=== PATIENT | female | born 1950 | race Caucasian/White ===

== ENCOUNTER 2019-03-08 09:01 | Day surgery (SDC) | payer OTHER, SELFPAY ==
[2019-03-04 10:49] VITALS: BMI 34.8
[2019-03-08] VITALS (8 sets, daily range): BP systolic 109–153; BP diastolic 53–91; PULSE 60–77; RESP 14–24; TEMP 36.2–36.8; O2SAT 93–95; BMI 33.0
--- NOTE | 2019-03-08 | DI.RAD.S_ITS ---
PROCEDURE: XR FOOT LT MIN 3V INDICATIONS: CORRECTION FLAT FOOT WITH HINDFOOT FUSION TECHNIQUE: 5 intraoperative fluoroscopic images. views of the foot were acquired. COMPARISON: [facility], [facility], XR FOOT 3 VIEWS WEIGHT BEARING LEFT, 01/17/2019, 13:22. FINDINGS: 2 posterior calcaneal screws. 2 navicular screws and 2 screws spanning the first CMT joint. IMPRESSION: Intraoperative images from screw fixation of the left foot. Dictated by: Sudhir Jauregui M.D. on 03/08/2019 at 17:35 Approved by: Sudhir Jauregui M.D. on 03/08/2019 at 17:39
[2019-03-08] MEDS: LACTATED RINGERS 1,000 ML 42 ML IV ×2 (09:49→12:50)
[2019-03-08] MEDS: ACETAMINOPHEN 325 MG TABLET 975 MG PO (09:49)
[2019-03-08] MEDS: CELECOXIB 200 MG CAPSULE 400 MG PO (09:49)
[2019-03-08] MEDS: GABAPENTIN 300 MG CAPSULE PO (09:49)
--- NOTE | 2019-03-08 10:53 | PM.PREOP ---
Pre-operative Note Interval Note History & Physical reviewed/Exam performed by Physician: Yes Changes to H&P: No
--- NOTE | 2019-03-08 11:47 | SUR.PREOP ---
Block start time [1132] . Monitoring initiated and maintained throughout procedure. Patient remained stable throughout procedure, no adverse reactions noted. Block end time [1139].
[2019-03-08] MEDS: CLINDAMYCIN 900 MG/50 ML PIGGYBACK 50 MG IV (11:48)
--- NOTE | 2019-03-08 12:26 | SUR.OPER ---
Supine on padded OR bed, head on pillow, arms secured on padded arm boards at <90 degrees abduction, legs uncrossed, safety belt at thigh, tape over blanket over right leg. bump under left hip
[2019-03-08] MEDS: PROPARACAINE 0.5% OPHTH SOL 1 DROPS EYE-RIGHT (16:31)
[2019-03-08] MEDS: OXYCODONE IR 5 MG TABLET PO (16:34)
--- NOTE | 2019-03-08 17:39 | P.OP_ITS ---
Operative Date/Time/Diagnoses Date of procedure: 03/08/19 Time of procedure: 17:41 Pre-op diagnosis: Arthritis left foot and ankle Posterior tibial tendinitis left leg Pes planus acquired left foot Equinus contracture left ankle Post-op diagnosis: same Procedure & Clinicians Procedure: Fusion talonavicular and talocalcaneal joints, left CPT code 64461 Fusion tarsometatarsal joint single left CPT code 08837-39 Tenotomy Achilles lengthening CPT code 52642-14 Bone graft any donor area major or large left proximal tibia CPT code 72506-71 Same procedure as scheduled: Yes Indications: The patient is a 68-year-old female with chronic left foot pain the symptomatic left flatfoot. The patient has a severe pes planovalgus deformity with arthritis of her hindfoot. She has been indicated for hindfoot arthrodesis and Achilles tendon lengthening. 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 The risks benefits and alternatives to the procedure have been discussed with the patient in detail and they have been given the opportunity to ask questions. The risks include but are not limited to infection, malunion, nonunion, persistent pain, damage to nerves and blood vessels, posttraumatic arthritis, amputation, DVT, PE, pulse cardiopulmonary complications and . Patient expressed a thorough understanding the risks and benefits of surgery and elected to proceed. Consent was signed in the office. Additionally we discussed utilizing a bone graft and donor bone. We discussed the importance of elevation above the heart level and anticipated 8-10 weeks of nonweightbearing. We discussed the importance of calcium and vitamin-D. Surgeon: Lachelle Johnson Utility Locate Technician: Beverly Bell Anesthesia Type: General and Peripheral nerve block Operative Notes Findings: Severe pes planovalgus deformity and equinus contracture of the Achilles. Tendo Achilles lengthening was performed with a triple Saunders style utilizing the proximal distal incisions to the lateral side in the mid released to the medial based on the valgus deformity. The subtalar joint was then exposed with cartilage loss throughout the subtalar joint. This was prepped and stabilized with 2x 6.7 Arthrex headed cannulated screws. Attention was then turned to the talonavicular joint which was exposed through would anterior medial and dorsal approach this was stabilized with 2x4.5 cannulated screws from the Arthrex set. As expected there was residual supination with correction so attention was turned the 1st tarsometatarsal joint and this was prepared through a separate incision although this was ultimately extended a to meet the distal part of the talonavicular exposure. This was fixed using cross screws 1x3.5 solid screw and 1 x 4.0 cannulated screw. Closure Type: primary Specimen(s): none sent Prosthetic devices, grafts, tissues, transplants, or devices: Arthrex 6.7 cannulated screws x 2 Arthrex 4.5 cannulated screws x2 Arthrex 3.5 cortical screw Arthrex 4.0 cannulated screw 15 cc cancellous chips Estimated Blood Loss (mL): 100 Blood products transfused: none Tourniquet time (min): 120 Procedure in detail: Patient was seen in the preoperative holding area and the appropriate limb and site of surgery the surgery was marked. Consent was confirmed. The patient was then brought to the block room by the anesthetic team. A postoperative block was placed for postoperative pain control. Patient was then brought to the operating room and placed supine on the operative table. General anesthesia was administered. Bony prominences were well-padded. Well- padded thigh tourniquet was placed. The ipsilateral thigh bump was placed. An SCD was placed on the contralateral leg. A Rgaves was placed for the duration of the case and removed at the end. A formal time-out procedure was performed confirming the patient's side and site of surgery and administration of appropriate preoperative antibiotics for this patient's was clindamycin due to a allergy. Implants were accounted for and present in the room. The use of a learning support assistant was necessary and integral for this case to aid the operating surgeon. The golf player assistant participated in the positioning, retraction/ exposure, positioning/ hardware placement and closure. The operating surgeon persistent patent in 100% of the procedure from positioning exposure hardware placement and closure. Tendo Achilles lengthening. The limb was elevated in extension and the ankle was dorsiflexed. 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 There is no significant change with knee flexion therefore tendo Achilles lengthening was selected. On the posterior aspect of the leg centered over the Achilles tendon we made 3 small stab incisions proximal mid and distal. These were taken down directly through the Achilles tendon and then turned to the lateral sides at the distal and proximal incisions and to the medial side in the middle incision cutting 50% of the tendon in 3 places for a triple Saunders style lengthening. We then stretched the tendon and had a good 20? of ankle dorsiflexion with the Apple stretch at knee extension. Once were satisfied with the Achilles tendon lengthening attention turned to the remainder of the procedure. An Esmarch bandage was utilized for exsanguination and the tourniquet was elevated on the thigh to 250 mm of mercury and stayed there for 120 minutes and was not reinflated. Hindfoot arthrodesis. An incision was made from the tip of the fibula to the base of the 4th metatarsal. Dissection was carried down through the skin subcutaneous tissue. The sheath of the extensor digitorum brevis was opened. The extensor digitorum brevis was then subperiosteal E detached proximally reflected distally and secured with a 2 0 PDS suture. The sinus tarsi was cleared off of the soft tissue and suppressive dissection was performed of the talus and calcaneus. The calcaneal cuboid joint was not exposed. We removed what was left of the articular surface and subchondral bone on the subtalar joint and the lateral part of the talonavicular joint. This was done using the Synthes joint prep set and osteotomes and curette. Once we had good cancellous surface and normal shape and contour of the joints were then drilled these with a 2 5 drill bit and used the osteotome to fish scale. Next attention was turned to the talonavicular joint. We made an anterior dorsal medial incision over the talonavicular joint this was taken right between the tibialis anterior and the EHL tendon. We did a careful dissection not to injure the tendinous structures. We dissected down to the talonavicular joint. Joint was exposed in subperiosteal elevation was done and then the joint was distracted with a K-wire distractor. The talonavicular joint surfaces were prepared to good bleeding cancellous bone in the same fashion as the subtalar joint. Once were satisfied with the exposure and prep we placed bone graft which was a mixture of 15 cc of cancellous chips and approximately 8 cc of proximal tibia allograft that we harvested from the patient. Then we manually reduced the subtalar joint and pinned this in position with a pin from the calcaneus into the talus. The guidewires for the 6 7 cannulated screws were directed from the heel into the talar dome in a parallel fashion. This corrected the hindfoot alignment and rigidly fix the subtalar joint in physiologic valgus. The K-wires were then measured and over drilled after confirming on multiplanar fluoroscopy that they were well within bone. Two Arthrex 6.7 headed screws were placed. Both screws were countersunk to avoid any hardware prominence. This achieved excellent fixation of the subtalar joint. Next attention was turned to fixation of the talonavicular joint. This was reduced and pinned in place with a guidewire for the 4 5 Arthrex cannulated screw. A 2nd wire was placed as well. This was checked on multiplanar fluoroscopy and then over drilled and 24.5 partially- threaded cannulated screws were placed demonstrating excellent fixation of the talonavicular joint. Of note the talonavicular joint also had bone graft placed prior to fixation. First TMT fusion: Once the hindfoot fusion was completed in appropriate alig nment there was residual supination of the forefoot so 1st tarsometatarsal joint was exposed in the standard dorsal approach with suppressive dissection to the 1st TMT joint. This was then prepped in the standard fashion infused with 2x 3.5 cortical screws however 1 of the screws went right through the bone and did not achieve purchase. Therefore this was removed and exchanged for 1x3.5 cortical screw and 1x4.0 cannulated screw. Again this joint was prepped in the same fashion with cancellous preparation drilling fish scaling and bone graft. Final fixation was evaluated gave stable excellent correction. Proximal tibia bone graft harvest: 2 cm incision was made just lateral to the tibial tubercle between the distal part of the Gerdy's tubercle. This was taken down through the subcutaneous and soft tissues. Soft tissues were retracted. Anterior compartment fascia was incised retracted posteriorly. 6 mm osteotome was used to make a bone window after 1st drilling with a 2.5 drill. A large curette was used to harvest the bone. An x-ray was used to confirm this was well away from the joint line. Once this was completed approximately 8 cc of good a autograft was obtained. However was felt that a more would be needed due to this multi joint fusion therefore this was mixed with 15 cc of allograft crushed cancellous. The autograft was mixed together as well as an aspiration but for of blood and marrow from the proximal tibial site and set on the back table for use. Tourniquet was released at 120 minutes and hemostasis was achieved. Deep closure was completed with 2 O PDS and Vicryl. And subcutaneous closure with 2 O Vicryl 4 0 Monocryl and 3 O nylon. Complications: none Post-operative Condition: stable Disposition: PACU Plan for aftercare: Nonweightbearing left lower extremity. Elevate above the heart level. Will take aspirin for DVT prophylaxis. As Toradol, p.o. Dilaudid and Tylenol for pain medication. Was also given a prescription for Zofran for anti nausea. Keep dressing clean dry and intact. Anticipate 8-12 weeks nonweightbearing. Follow-up in the clinic as scheduled.
--- NOTE | 2019-03-08 18:16 | SUR.PHASEII ---
Dr. Johnson notified patient c/o corneal abrasion. Erythema in eye improving. Proparicaine drops given and bottle provided to patient per Dr. Johnson with instructions to use every half hour as needed for 2 days, call MD if no improvement. Patient reported 7.5/10 back pain, 3/10 right eye pain and denied foot pain. Assisted to dress.
== END 2019-03-08 17:35 | disposition home or self-care (01) ==
PROVIDERS: PCP Nurse Practitioner; Visit Provider Orthopaedic Surgery Foot and Ankle Surgery
PROC: (CPT 28735; principal; 2019-03-08 11:15)
PROC: (CPT 27685; 2019-03-08 11:15)
DX: M19.072 Primary osteoarthritis, left ankle and foot (principal); M76.822 Posterior tibial tendinitis, left leg; M21.42 Flat foot [pes planus] (acquired), left foot; M24.572 Contracture, left ankle
CPT/HCPCS: 28730; 28740; 27606; 20902; 64450; 73630; 76000; J1100; J1885; J2405; J2704

== ENCOUNTER → 2023-01-11 08:28 | Outpatient (CLI) | payer OTHER, MEDICAID, SELFPAY ==
--- NOTE | 2023-01-11 | DI.RAD.S_ITS ---
PROCEDURE: FL BARIUM SWALLOW W SPEECH INDICATIONS: Dysphagia, unspecified COMPARISON: None. TECHNIQUE: Examination was conducted in conjunction with speech pathology per standard protocol. In the lateral projection, filming was performed of the patient swallowing. AP projection filming may also be performed with patient swallowing. COMPARISON: FINDINGS: Function: The oral preparatory phase appears normal, with proper containment. The subsequent oral propulsive phase, pharyngeal phase, and esophageal phase of swallowing also appear normal with all proffered substances. No laryngotracheal penetration or aspiration. No pathologic vallecular pooling. Morphology: No cricopharyngeal bar is identified. No cervical esophageal webs. Tiny upper esophageal/pharyngeal midline diverticulum. No strictures. Large hiatal hernia. IMPRESSION: No aspiration. Tiny upper esophageal/pharyngeal midline diverticulum. Large hiatal hernia. Please see separately dictated speech pathologist's report. Dictated by: Sudhir Jauregui M.D. on 01/11/2023 at 12:42 Approved by: Sudhir Jauregui M.D. on 01/11/2023 at 12:45
--- NOTE | 2023-01-11 12:04 | ST.SWALLOW ---
Visit Care Team Role Provider Type HILARIO Montano Attending Provider Non-Staff Primary Care Provider Referring Provider Specialty: Nursing Address: [facility] [address], [address], [place], [address] Email: Modified Barium Swallow Study OLIVE BRINE TESTER Modified Barium Swallow Study Start: 01/11/23 09:40 Freq: Status: Active Protocol: Document 01/11/23 09:41 LNK (Rec: 01/11/23 09:52 LNK [id number]) Modified Barium Swallow Study Total Time Visit Start Time 09:00 Visit Stop Time 09:30 Total Visit Minutes 30 Referral Referring Physician HILARIO Kirk Setting Setting Outpatient Care Patient Information Identification Type Name,Date of Patient History Pt was seen for a Modified Barium Swallow Study at the referral of HILARIO Kirk. Pt reported that she has difficulty swallowing pills and solid foods such as meats, breads, sticky foods. The pt also reported that small pills frequently get stuck in her upper throat and she cannot flush the pill. As a result, she said that the pill dissolves and plaza. She denied difficulty swallowing liquids. Pt described a sensation of globus in her sternal area and describes the sensation as pressure/ sticking. Pt reported a PMH of a large hiatal hernia and GERD. She takes Omneprozol 1- 2x/day. She is under the care of a principal statistical scientist for her GERD and hiatal hernia. Subjective Observations Pt entered the fluoroscopy room in a wheelchair and self transferred to the fluoroscopy chair. Instructions and procedures were described for the pt, who indicated she understood and agreed to proceed. Patient Positioning Position View Lat-A/P Imaging Lateral View Textures Administered Trials Presented Thin Liquid via Spoon (IDDSI 0 ),Thin Liquid via Cup (IDDSI 0 ),Extremely Thick Liquid via Spoon (IDDSI 4),Regular (IDDSI 7) Barium Tablet Yes The IDDSI Framework Protocol: IDDSI.1 Oral Impairment Source: The Modified Barium Swallow Impairment Profile (MBSImP??) Lip Closure No labial escape Tongue Control During Bolus Hold Cohesive bolus between tongue to palatal seal Bolus Preparation/Mastication Timely & efficient chewing & mashing Bolus Transport/Lingual Motion Brisk tongue motion Oral Residue Trace residue lining oral structures Location Floor of mouth Initiation of Pharyngeal Swallow Bolus head at posterior angle of ramus (first hyoid excursion) Additional Oral Impairment Observations OME and DKS were observed to be WNL. Mastication was efficient with a rotary chew pattern. Dentition was natural in good hygeine. Bolus formation, control and AP transition observed to be WNL. Pharyngeal Impairment Source: The Modified Barium Swallow Impairment Profile (MBSImP??) Soft Palate Elevation No bolus between soft palate & pharyngeal wall Laryngeal Elevation Part.sup.move.thyroid cart/ part.approx.arytenoids to epiglot.petiole Anterior Hyoid Excursion Partial anterior movement Epiglottic Movement Partial inversion Laryngeal Vestibular Closure Complete; no air/contrast in laryngeal vestibule Pharyngeal Stripping Wave Present - diminished Pharyngoesophageal Segment Opening Partial distention/partial duration; partial obstruction of flow Tongue Base Retraction Narrow column of contrast/air betwn tongue base & post. pharyngeal wall Pharyngeal Residue Collection of residue within/ on pharyngeal structures Location Diffuse (>3 areas) Additional Pharyngeal Impairment Tongue base weakness was Observations observed to diminish the hyolaryngeal elevation and movement, epiglottic inversion and opening of the PES. There was reduced stripping of the posterior pharyngeal wall as well, resulting in reduced bolus control through the pharynx. Diffuse pooling of contrast was observed throughout the pharynx following all swallows. The laryngeal vestibule seal appeared to be adequate. No laryngeal penetration or tracheal aspiration was observed. A/P View Textures Administered Trials Presented Thin Liquid via Spoon (IDDSI 0 ) The IDDSI Framework Protocol: IDDSI.1 A/P View Observations Esophageal Clearance Upright Position Esophageal retention w/ regtrograde flow below pharyngoesoph segment Esophageal Function Slowed Clearing Additional A-P Observations Osteophytes at C5-C6 were observed to protrude anteriorly, distorting the shape of the esophagus. 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 This was seen in both the AP and lateral positions. This may be related to the pt's description of her small pills feeling as though they are stuck, eventually dissolve with a burning sensation (per pt report). The hiatal hernia and esophagus appeared to clear within a timely manner. Upon entering the hiatal hernia as well as the UES, there was slight hesitation of the cookie and barium tablet . At that time, the pt reported the globus sensation at the sternal notch. As the tablet entered the stomach, the pt reported the globus sensation gone. Clinical Impressions Dysphagia Type Pharyngeal,Esophageal Findings The pt presented with mild pharyngeal and esophageal dysphagia. As stated above, there appears to be a tiny pseudodiverticulum that may trap small pills giving the pt a sensation of being stuck. The pill eventually will dissolve with the pt reporting burning sensation. Upon entering the hiatal hernia as well as the UES, there was slight hesitation of the cookie and barium tablet before clearing into the stomach. At that time the pt reported the globus sensation at the sternal notch. As the tablet entered the stomach, the pt reported the globus sensation gone. The pt may benefit from swallow therapy targeting base of tongue strength targeting improved bolus control through pharynx. ST recommended. Rehabilitation Potential Good Patient Appropriate for Therapy Yes: Base of tongue exercises Recommendations Diet Comments No Diet changes were recommended; cont. small bites ; increase fluids/meals Treatment Plan Therapy Recommendations Outpatient Speech Therapy,Base of Tongue Exercises Additional Recommended Referrals continue. small bites; increase fluids with meals Therapy Strategy Recommendations Small Bites and Sips,Alternate Liquids/Solids
== END ==
PROVIDERS: PCP Nurse Practitioner; Referring Provider Nurse Practitioner; Visit Provider Nurse Practitioner
DX: R13.10 Dysphagia, unspecified (principal); K44.9 Diaphragmatic hernia without obstruction or gangrene
CPT/HCPCS: 74230; 92611